=== PATIENT | female | born 1955 | race Caucasian/White ===

== ENCOUNTER 2016-09-03 19:55 | Inpatient (IN) | payer OTHER ==
[~2016-09-03] VITALS: Ht 162.5 cm; Wt 70.6 kg
[~2016-09-03 19:55] MED LIST: ASPIRIN CHILDRE81 MG PO; BACTRIM DS 8001 TA1 PO; CALCIUM CHELAT200 MG PO; CATAFLAM50 MG PO; HYDROCODONE BIT1 T11 PO; IMODIUM2 MG PO; LASIX20 MG PO; OMEPRAZOLE DR20 MG PO; POTASSIUM20 MEQ PO; TRAMADOL HCL50 MG PO; XANAX0.25 MG PO
[2016-09-03 20:07] VITALS: BP 146/74
[2016-09-03] MEDS ORDERED: DOXYCYCLINE100 M3 PO (20:13)
[2016-09-03] MEDS ORDERED: CHEWABLE VITE1 CTB PO (20:14)
[2016-09-03 20:24] LABS: BASO % 0.2 % (0.0-1.0); EOS # 0.1 10*3/uL (0.0-0.4); EOS % 1.3 % (1.0-4.0); HEMATOCRIT 35.7 % (37.0-47.0); HEMOGLOBIN 12.7 g/dl (12.0-16.0); IG # 0.1 10*3/uL (0.0-0.1); LYMPH # 3.1 10*3/uL (1.3-4.4); LYMPH % 34.3 % (27.0-41.0); MEAN CORPUSCULAR HGB 30.2 pg (27.0-31.0); MEAN CORPUSCULAR HGB CONC 35.6 g/dl (33.0-37.0); MONO # 0.7 10*3/uL (0.1-1.0); MONO % 7.8 % (3.0-9.0); NEUT # 5.1 10*3/uL (2.3-7.9); NEUT % 55.6 % (47.0-73.0); PLATELET COUNT AUTOMATED 237 10*3/uL (130-400); RED CELL DISTRI WIDTH 12.9 % (0-14.5); WHITE BLOOD COUNT 9.1 10*3/uL (4.8-10.8)
[2016-09-03 20:26] VITALS: BP 146/74
[2016-09-03 20:45] LABS: ALBUMIN 3.8 gm/dl (3.1-4.5); ALKALINE PHOSPHATASE 94 U/L (45-117); BILIRUBIN, TOTAL 1.1 mg/dl (0.2-1.0); BUN 26 mg/dl (7-24); CARBON DIOXIDE 26 mmol/L (21-32); CHLORIDE 100 mmol/L (98-107); CPK 87 U/L (26-192); EST GLOM FILT AFRICAN AMERICAN > 60 ml/min; GLUCOSE 90 mg/dL (65-99); SGOT/AST 15 IU/L (3-35); SGPT/ALT 23 U/L (12-78); SODIUM 141 mmol/L (136-145)
[2016-09-03 20:46] LABS: CKMB 1.8 ng/ml (0.5-3.6)
[2016-09-03 20:50] LABS: POTASSIUM 2.4 mmol/L (3.5-5.1); TROPONIN I < 0.015 ng/ml (<0.045)
[2016-09-03 21:49] VITALS: BP 128/98
[2016-09-03 22:50] VITALS: BP 152/76
[2016-09-03] MEDS ORDERED: XANAX0.5 MG PO (23:07)
[2016-09-03] MEDS ORDERED: OMEPRAZOLE D/R20 MG PO (23:08)
[2016-09-03] MEDS ORDERED: IMODIUM A-D2 M2 PO (23:08)
[2016-09-03] MEDS ORDERED: TOPCARE OMEPRAZ20 MG PO (23:09)
[2016-09-04] VITALS: BP 114/54
[2016-09-04 00:35] LABS: CKMB 1.4 ng/ml (0.5-3.6); CPK 67 U/L (26-192)
[2016-09-04 00:40] LABS: TROPONIN I < 0.015 ng/ml (<0.045)
[2016-09-04 06:04] LABS: BASO % 0.5 % (0.0-1.0); EOS # 0.1 10*3/uL (0.0-0.4); EOS % 2.2 % (1.0-4.0); HEMATOCRIT 32.3 % (37.0-47.0); HEMOGLOBIN 11.1 g/dl (12.0-16.0); LYMPH % 32.7 % (27.0-41.0); MEAN CORPUSCULAR HGB 30.5 pg (27.0-31.0); MEAN CORPUSCULAR HGB CONC 34.4 g/dl (33.0-37.0); MEAN PLATELET VOLUME 8.8 fl (9.6-12.3); MONO # 0.6 10*3/uL (0.1-1.0); MONO % 9.3 % (3.0-9.0); NEUT # 3.3 10*3/uL (2.3-7.9); NEUT % 54.8 % (47.0-73.0); PLATELET COUNT AUTOMATED 204 10*3/uL (130-400); RED BLOOD COUNT 3.64 10*6/uL (4.10-5.10); RED CELL DISTRI WIDTH 13.2 % (0-14.5)
[2016-09-04 06:09] LABS: MEAN CELL VOLUME 88.7 fl (81.0-99.0)
[2016-09-04 06:13] LABS: CKMB 1.7 ng/ml (0.5-3.6); CPK 67 U/L (26-192); TROPONIN I < 0.015 ng/ml (<0.045)
[2016-09-04 06:29] LABS: HEMOGLOBIN A1c 5.5 % (4.8-5.6)
[2016-09-04 06:37] LABS: BILIRUBIN, TOTAL 0.7 mg/dl (0.2-1.0); BUN 23 mg/dl (7-24); CARBON DIOXIDE 28 mmol/L (21-32); CHLORIDE 109 mmol/L (98-107); CHOLESTEROL 168 mg/dL (<200); EST GLOM FILT AFRICAN AMERICAN > 60 ml/min; GLUCOSE 104 mg/dL (65-99); MAGNESIUM 2.6 mg/dL (1.5-2.1); PHOSPHOROUS 2.4 mg/dL (2.5-4.9); PROTHROMBIN TIME 10.1 SECONDS (9.0-12.4); SGOT/AST 12 IU/L (3-35); SGPT/ALT 18 U/L (12-78); SODIUM 145 mmol/L (136-145); TRIGLYCERIDES 526 mg/dl (<150)
[2016-09-04 06:43] LABS: ALKALINE PHOSPHATASE 80 U/L (45-117); FREE T4 1.12 ng/dl (0.76-1.46); HDL CHOLESTEROL 30 mg/dl (40-60); POTASSIUM 3.5 mmol/L (3.5-5.1); TOTAL PROTEIN 5.6 gm/dL (6.4-8.2)
[2016-09-04 06:58] LABS: VITAMIN D, 25-HYDROXY 12.2 ng/mL (30-100)
[2016-09-04 06:59] LABS: FOLIC ACID 10.49 ng/mL (>5.38)
[2016-09-04 08:00] VITALS: BP 101/44
[2016-09-04 12:00] VITALS: BP 112/53
[2016-09-04 12:10] LABS: CKMB 1.6 ng/ml (0.5-3.6); CPK 62 U/L (26-192)
[2016-09-04 12:13] LABS: TROPONIN I < 0.015 ng/ml (<0.045)
== END 2016-09-04 15:21 | disposition home or self-care (01) | DRG 313 ==
LOC: ED 19:55 → EDHOLD 21:19 → 4E 21:46
PROVIDERS: Internal Medicine; Nurse Practitioner Family
DX: R07.9 Chest pain, unspecified (principal); E83.42 Hypomagnesemia; E87.6 Hypokalemia; F41.9 Anxiety disorder, unspecified; K21.9 Gastro-esophageal reflux disease without esophagitis; R03.0 Elevated blood-pressure reading, without diagnosis of hypertension; E80.6 Other disorders of bilirubin metabolism; E78.5 Hyperlipidemia, unspecified; Z85.41 Personal history of malignant neoplasm of cervix uteri; Z85.72 Personal history of non-Hodgkin lymphomas; Z90.710 Acquired absence of both cervix and uterus; Z88.8 Allergy status to other drugs, medicaments and biological substances; Z82.49 Family history of ischemic heart disease and other diseases of the circulatory system

== ENCOUNTER → 2019-06-17 | Outpatient (CLI) | payer OTHER ==
[~2019-06-17] MED LIST changes: +CHEWABLE VITE1 CTB PO; +DOXYCYCLINE100 M3 PO; +IMODIUM A-D2 M2 PO; +OMEPRAZOLE D/R20 MG PO; +TOPCARE OMEPRAZ20 MG PO; +XANAX0.5 MG PO
== END | disposition home or self-care (01) ==
LOC: MAMMO 00:11
DX: Z12.31 Encounter for screening mammogram for malignant neoplasm of breast (principal)

== ENCOUNTER → 2019-12-25 | Outpatient (CLI) | payer OTHER | END | disposition home or self-care (01) | LOC: COVID19 00:57 | DX: Z20.828 Contact with and (suspected) exposure to other viral communicable diseases (principal); J01.00 Acute maxillary sinusitis, unspecified; R06.02 Shortness of breath; R06.2 Wheezing ==

== ENCOUNTER 2020-04-04 18:48 | Observation (INO) | payer OTHER ==
[~2020-04-04] VITALS: Ht 162.5 cm; Wt 75.7 kg
[~2020-04-04 18:48] MED LIST changes: -LASIX20 MG PO; +LASIX40 MG PO; -POTASSIUM20 MEQ PO; +POTASSIUM99 M3 PO
[2020-04-04 18:57] VITALS: BP 168/87
[2020-04-04 19:16] LABS: BASO % 0.4 % (0.0-1.0); EOS # 0.1 10*3/uL (0.0-0.4); EOS % 1.3 % (1.0-4.0); HEMATOCRIT 40.9 % (37.0-47.0); LYMPH # 2.5 10*3/uL (1.3-4.4); LYMPH % 27.2 % (27.0-41.0); MEAN CORPUSCULAR HGB 28.6 pg (27.0-31.0); MEAN CORPUSCULAR HGB CONC 32.5 g/dl (33.0-37.0); MEAN PLATELET VOLUME 9.1 fl (9.6-12.3); MONO # 0.7 10*3/uL (0.1-1.0); MONO % 7.7 % (3.0-9.0); NEUT # 5.7 10*3/uL (2.3-7.9); NEUT % 63.1 % (47.0-73.0); PLATELET COUNT AUTOMATED 262 10*3/uL (130-400); RED BLOOD COUNT 4.65 10*6/uL (4.10-5.10); RED CELL DISTRI WIDTH 13.1 % (0-14.5)
[2020-04-04 19:25] VITALS: BP 132/74
[2020-04-04 19:27] LABS: ACT PARTIAL THROMBO TIME 24.2 SECONDS (20.0-32.1)
[2020-04-04 19:46] LABS: ALBUMIN 4.5 gm/dl (3.1-4.5); ALKALINE PHOSPHATASE 92 U/L (45-117); BUN 20 mg/dl (7-24); CHLORIDE 104 mmol/L (98-107); CREATININE 1.29 mg/dL (0.55-1.02); POTASSIUM 3.8 mmol/L (3.5-5.1); SGOT/AST 42 IU/L (3-35); SGPT/ALT 43 U/L (12-78); SODIUM 139 mmol/L (136-145)
[2020-04-04 19:49] LABS: TROPONIN I < 0.015 ng/ml (<0.045)
[2020-04-04 20:02] VITALS: BP 110/68
--- NOTE | 2020-04-04 20:03 | NUR ---
PATIENT IN BED AWAKE AND ALERT NO DISTRESS NOTED. PATIENT STATES CHEST PAIN IS GONE AT THIS TIME. VOICES NO COMPLAINTS. RN WILL CONT TO MONITOR
[2020-04-04 20:30] VITALS: BP 134/88
[2020-04-04 21:28] VITALS: BP 133/83
[2020-04-04 22:35] VITALS: BP 148/78
[2020-04-04] MEDS ORDERED: CIPRO500 MG PO (23:12)
[2020-04-04] MEDS ORDERED: PRAVACHOL20 MG PO (23:13)
--- NOTE | 2020-04-05 00:12 | NUR ---
PATIENT IN BED AWAKE AND ALERT WATCHING TV. NO DISTRESS NOTED. CALL LIGHT WITHIN REACH. VOICES NO COMPLAINTS. RN WILL CONT TO MONITOR
[2020-04-05 01:00] VITALS: BP 132/80
--- NOTE | 2020-04-05 02:42 | NUR ---
PATIENT RESTING IN BED AT THIS TIME. NO DISTRESS NOTED. CALL LIGHT WITHIN REACH. RESPIRATIONS EASY, NON-LABORED ON ROOM AIR. RN WILL CONTINUE TO MONITOR.
--- NOTE | 2020-04-05 04:00 | NUR ---
PATIENT RESTING IN BED WITH TV ON. RESPIRATIONS EASY, NON-LABORED ON ROOM AIR. NO DISTRESS NOTED. PATIENT DENIES ANY NEEDS AT THIS TIME. RN WILL CONTINUE TO MONITOR.
[2020-04-05 05:50] LABS: BUN 20 mg/dl (7-24); CHLORIDE 107 mmol/L (98-107); CREATININE 1.03 mg/dL (0.55-1.02); POTASSIUM 4.1 mmol/L (3.5-5.1); SODIUM 142 mmol/L (136-145)
[2020-04-05 06:16] LABS: BASO % 0.4 % (0.0-1.0); EOS # 0.1 10*3/uL (0.0-0.4); EOS % 1.7 % (1.0-4.0); HEMATOCRIT 36.1 % (37.0-47.0); LYMPH # 2.9 10*3/uL (1.3-4.4); LYMPH % 36.9 % (27.0-41.0); MEAN CELL VOLUME 89.6 fl (81.0-99.0); MEAN CORPUSCULAR HGB 28.3 pg (27.0-31.0); MEAN CORPUSCULAR HGB CONC 31.6 g/dl (33.0-37.0); MEAN PLATELET VOLUME 9.7 fl (9.6-12.3); MONO # 0.6 10*3/uL (0.1-1.0); MONO % 7.5 % (3.0-9.0); NEUT # 4.2 10*3/uL (2.3-7.9); NEUT % 53.2 % (47.0-73.0); PLATELET COUNT AUTOMATED 218 10*3/uL (130-400); RED BLOOD COUNT 4.03 10*6/uL (4.10-5.10); RED CELL DISTRI WIDTH 13.3 % (0-14.5); WHITE BLOOD COUNT 7.8 10*3/uL (4.8-10.8)
[2020-04-05 06:30] VITALS: BP 147/74
--- NOTE | 2020-04-05 06:38 | NUR ---
PATIENT RESTING IN BED AT THIS TIME. PATIENT JUST BACK FROM VQ SCAN AT THIS TIME. PROVIDED PATIENT WITH BREAKFAST MENU AND PHONE NUMBER TO CALL. RESPIRATIONS EASY, NON-LABORED ON ROOM AIR. NO DISTRESS NOTED. RN WILL CONTINUE TO MONITOR.
[2020-05-11] MEDS ORDERED: CALCIUM 1,0001 EACH PO (08:39)
[2020-05-11] MEDS ORDERED: PROBIOTIC DIGE1 EACH PO (08:40)
[2020-05-11] MEDS ORDERED: IMODIUM A-D2 M2 PO (08:41)
[2020-05-11] MEDS ORDERED: MECLIZINE HYD12.5 MG PO (08:42)
== END 2020-04-05 13:21 | disposition home or self-care (01) ==
LOC: ED 18:48 → EDHOLD 21:56
PROVIDERS: Emergency Medicine; Internal Medicine; ADMIT Student in an Organized Health Care Education/Training Program; ATTEND Student in an Organized Health Care Education/Training Program
DX: R07.89 Other chest pain (principal); R79.89 Other specified abnormal findings of blood chemistry; R00.0 Tachycardia, unspecified; N17.9 Acute kidney failure, unspecified; R73.9 Hyperglycemia, unspecified; E80.6 Other disorders of bilirubin metabolism; K21.9 Gastro-esophageal reflux disease without esophagitis; E78.5 Hyperlipidemia, unspecified; F41.9 Anxiety disorder, unspecified

== ENCOUNTER → 2020-05-11 | Outpatient (CLI) | payer OTHER ==
[~2020-05-11] MED LIST changes: +CALCIUM 1,0001 EACH PO; +CIPRO500 MG PO; +MECLIZINE HYD12.5 MG PO; +PRAVACHOL20 MG PO; +PROBIOTIC DIGE1 EACH PO
--- NOTE | 2020-05-11 09:30 | NUR ---
INFORMED CONSENT OBTAINED FOR EXERCISE CARDIOLITE STRESS TEST WITH DR. CASEY. RESTING EKG NSR WITH A SUPINE HR OF 78 WITH BP OF 132/84 AND HR OF 78 WITH BP OF 126/80 IN STANDING POSITION. RESTING SPO2 OF 99% ON ROOM AIR. PT COMPLETED 3:15 OF A CORBY PROTOCOL. COMPLETED 15 SECONDS OF STAGE II AT 2.5 MPH AND 12% GRADE. TEST TERMINATED BECAUSE OF FATIGUE AND SOB. REACHED A PEAK HR OF 161 WHICH IS 103% OF PREDICTED MAX AND A PEAK BP OF 186/74. EXERCISE SPO2 OF 96%. HAD NO CHEST PAIN AND EKG NONDIAGNOSTIC. HAS A FAIR EXERCISE TOLERANCE. LAST RECOVERY HR OF 91 WITH BP OF 142/84. AWAITING SCANNING IN STABLE CONDITION.
== END | disposition home or self-care (01) ==
LOC: CARD 00:20
PROVIDERS: ATTEND Internal Medicine
DX: R07.9 Chest pain, unspecified (principal); R06.02 Shortness of breath

== ENCOUNTER → 2020-06-22 | Outpatient (CLI) | payer OTHER | END | disposition home or self-care (01) | LOC: MAMMO 00:18 | PROVIDERS: ATTEND Family Medicine | DX: Z12.31 Encounter for screening mammogram for malignant neoplasm of breast (principal); N64.89 Other specified disorders of breast ==

== ENCOUNTER → 2020-07-14 | Outpatient (CLI) | payer OTHER | END | disposition home or self-care (01) | LOC: MAMMO 09:59 | PROVIDERS: ATTEND Family Medicine | DX: N60.02 Solitary cyst of left breast (principal); R92.1 Mammographic calcification found on diagnostic imaging of breast; R92.8 Other abnormal and inconclusive findings on diagnostic imaging of breast ==

== ENCOUNTER → 2020-10-10 | Outpatient (CLI) | payer OTHER ==
[2020-10-10 10:20] LABS: BASO % 0.3 % (0.0-1.0); EOS # 0.1 10*3/uL (0.0-0.4); EOS % 1.4 % (1.0-4.0); HEMATOCRIT 38.3 % (37.0-47.0); LYMPH # 1.8 10*3/uL (1.3-4.4); LYMPH % 23.5 % (27.0-41.0); MEAN CORPUSCULAR HGB CONC 32.9 g/dl (33.0-37.0); MEAN PLATELET VOLUME 9.5 fl (9.6-12.3); MONO # 0.5 10*3/uL (0.1-1.0); MONO % 6.7 % (3.0-9.0); NEUT # 5.2 10*3/uL (2.3-7.9); NEUT % 67.7 % (47.0-73.0); PLATELET COUNT AUTOMATED 208 10*3/uL (130-400); RED BLOOD COUNT 4.35 10*6/uL (4.10-5.10); RED CELL DISTRI WIDTH 13.2 % (0-14.5); WHITE BLOOD COUNT 7.7 10*3/uL (4.8-10.8)
[2020-10-10 10:20] LABS: BILIRUBIN Negative (Negative); BLOOD 1+ (Negative); CLARITY Cloudy (Clear); COLOR Yellow (Yellow); GLUCOSE Negative (Negative); KETONE Negative (Negative); LEUKO ESTERASE 3+ (Negative); NITRITE Positive (Negative); SPECIFIC GRAVITY 1.015 (1.001-1.030); UROBILINOGEN 0.2 E.U./dl (0.0-1.0)
[2020-10-10 10:27] LABS: BACTERIA 4+; EPITHELIAL CELLS 0-2; MUCOUS TRACE; RBC 0-2 rbc/hpf (0-2); WBC TNTC wbc/hpf (0-5)
[2020-10-10 10:35] LABS: ALBUMIN 3.5 gm/dl (3.1-4.5); ALKALINE PHOSPHATASE 88 U/L (45-117); BUN 11 mg/dl (7-24); CHLORIDE 108 mmol/L (98-107); CHOLESTEROL 177 mg/dL (<200); CREATININE 0.93 mg/dL (0.55-1.02); POTASSIUM 3.9 mmol/L (3.5-5.1); SGOT/AST 36 IU/L (3-35); SGPT/ALT 42 U/L (12-78); SODIUM 141 mmol/L (136-145); TOTAL PROTEIN 6.5 gm/dL (6.4-8.2); TRIGLYCERIDES 299 mg/dl (<150)
[2020-10-10 10:45] LABS: LDL CHOLESTEROL 85 mg/dL (9-159)
[2020-10-10 11:06] LABS: VITAMIN D, 25-HYDROXY 31.3 ng/mL (30-100)
== END | disposition home or self-care (01) ==
LOC: LAB 00:20
PROVIDERS: Nurse Practitioner Family; ATTEND Family Medicine
DX: N30.20 Other chronic cystitis without hematuria (principal); E55.9 Vitamin D deficiency, unspecified; E78.5 Hyperlipidemia, unspecified; Z00.01 Encounter for general adult medical examination with abnormal findings; Z13.29 Encounter for screening for other suspected endocrine disorder

== ENCOUNTER → 2021-07-17 | Outpatient (CLI) | payer OTHER, MEDICAID | END | disposition home or self-care (01) | LOC: MAMMO 10:37 | PROVIDERS: ATTEND Internal Medicine | DX: Z12.31 Encounter for screening mammogram for malignant neoplasm of breast (principal) ==

== ENCOUNTER 2021-09-19 13:58 | Emergency (ER) | payer OTHER, MEDICAID ==
[~2021-09-19] VITALS: Ht 162.5 cm; Wt 77.1 kg
[2021-09-19 14:51] LABS: BASO % 0.3 % (0.0-1.0); EOS # 0.1 10*3/uL (0.0-0.4); EOS % 1.9 % (1.0-4.0); HEMATOCRIT 38.4 % (37.0-47.0); LYMPH # 2.4 10*3/uL (1.3-4.4); LYMPH % 33.2 % (27.0-41.0); MEAN CELL VOLUME 85.5 fl (81.0-99.0); MEAN CORPUSCULAR HGB 28.3 pg (27.0-31.0); MEAN CORPUSCULAR HGB CONC 33.1 g/dl (33.0-37.0); MEAN PLATELET VOLUME 9.3 fl (9.6-12.3); MONO # 0.5 10*3/uL (0.1-1.0); MONO % 6.9 % (3.0-9.0); NEUT # 4.2 10*3/uL (2.3-7.9); NEUT % 57.3 % (47.0-73.0); PLATELET COUNT AUTOMATED 239 10*3/uL (130-400); RED BLOOD COUNT 4.49 10*6/uL (4.10-5.10); RED CELL DISTRI WIDTH 13.2 % (0-14.5); WHITE BLOOD COUNT 7.4 10*3/uL (4.8-10.8)
[2021-09-19 15:09] LABS: ALKALINE PHOSPHATASE 88 U/L (45-117); BUN 11 mg/dl (7-24); CHLORIDE 110 mmol/L (98-107); CREATININE 0.92 mg/dL (0.55-1.02); LIPASE 86 U/L (73-393); SGOT/AST 36 IU/L (3-35); SGPT/ALT 42 U/L (12-78); SODIUM 141 mmol/L (136-145); TOTAL PROTEIN 7.1 gm/dL (6.4-8.2)
[2021-09-19] MEDS ORDERED: METRONIDAZOLE500 M1 PO (18:50)
[2021-09-19] MEDS ORDERED: CIPRO500 MG PO (18:50)
[2021-09-19] MEDS ORDERED: HYDROCODONE-AC1 EAC1 PO (18:52)
== END 2021-09-19 19:48 | disposition home or self-care (01) ==
LOC: ED 13:58
PROVIDERS: Physician Assistant
DX: K57.92 Diverticulitis of intestine, part unspecified, without perforation or abscess without bleeding (principal); Z88.1 Allergy status to other antibiotic agents; Z88.8 Allergy status to other drugs, medicaments and biological substances; Z79.899 Other long term (current) drug therapy; Z98.890 Other specified postprocedural states; Z90.710 Acquired absence of both cervix and uterus

== ENCOUNTER → 2022-04-16 | Outpatient (CLI) | payer OTHER, MEDICAID ==
[~2022-04-16] MED LIST changes: +HYDROCODONE-AC1 EAC1 PO; +METRONIDAZOLE500 M1 PO
[2022-04-16 13:04] LABS: BASO % 0.4 % (0.0-1.0); EOS # 0.2 10*3/uL (0.0-0.4); HEMATOCRIT 39.7 % (37.0-47.0); LYMPH # 1.9 10*3/uL (1.3-4.4); LYMPH % 36.5 % (27.0-41.0); MEAN CELL VOLUME 88.4 fl (81.0-99.0); MEAN CORPUSCULAR HGB 28.7 pg (27.0-31.0); MEAN CORPUSCULAR HGB CONC 32.5 g/dl (33.0-37.0); MEAN PLATELET VOLUME 9.5 fl (9.6-12.3); MONO # 0.5 10*3/uL (0.1-1.0); MONO % 8.5 % (3.0-9.0); NEUT # 2.7 10*3/uL (2.3-7.9); NEUT % 51.6 % (47.0-73.0); PLATELET COUNT AUTOMATED 216 10*3/uL (130-400); RED BLOOD COUNT 4.49 10*6/uL (4.10-5.10); WHITE BLOOD COUNT 5.3 10*3/uL (4.8-10.8)
[2022-04-16 13:29] LABS: BUN 15 mg/dl (7-24); CHLORIDE 104 mmol/L (98-107); CREATININE 0.96 mg/dL (0.55-1.02); LDH 151 U/L (84-246); SGOT/AST 28 IU/L (3-35); SGPT/ALT 35 U/L (12-78); SODIUM 137 mmol/L (136-145); TOTAL PROTEIN 7.3 gm/dL (6.4-8.2)
[2022-04-16 13:30] LABS: ALKALINE PHOSPHATASE 90 U/L (45-117)
== END ==
LOC: LAB 12:02
PROVIDERS: ATTEND Internal Medicine
DX: Z12.31 Encounter for screening mammogram for malignant neoplasm of breast (principal); C85.95 Non-Hodgkin lymphoma, unspecified, lymph nodes of inguinal region and lower limb; R22.40 Localized swelling, mass and lump, unspecified lower limb; D70.9 Neutropenia, unspecified; R10.9 Unspecified abdominal pain

== ENCOUNTER → 2022-05-23 | Outpatient (CLI) | payer OTHER, MEDICAID ==
[2022-05-23 15:18] LABS: BILIRUBIN Negative (Negative); BLOOD 2+ (Negative); CLARITY Cloudy (Clear); COLOR Yellow (Yellow); GLUCOSE Negative (Negative); KETONE Negative (Negative); LEUKO ESTERASE 2+ (Negative); NITRITE Positive (Negative); PH 6.5 (4.5-8.0); SPECIFIC GRAVITY 1.015 (1.001-1.030)
[2022-05-23 15:56] LABS: BACTERIA 2+; WBC 21-30 wbc/hpf (0-5)
== END | disposition home or self-care (01) ==
LOC: LAB 14:16
PROVIDERS: ATTEND Family Medicine
DX: N30.00 Acute cystitis without hematuria (principal)

== ENCOUNTER → 2022-07-19 | Outpatient (CLI) | payer OTHER, MEDICAID | END | disposition home or self-care (01) | LOC: MAMMO 00:58 | PROVIDERS: ATTEND Internal Medicine | DX: Z12.31 Encounter for screening mammogram for malignant neoplasm of breast (principal); N63.0 Unspecified lump in unspecified breast ==

== ENCOUNTER 2023-04-05 17:48 | Emergency (ER) | payer OTHER, MEDICAID ==
[~2023-04-05] VITALS: Ht 162.5 cm; Wt 74.8 kg
[2023-04-05] MEDS ORDERED: LEVOFLOXACIN750 M2 PO (18:51)
== END 2023-04-05 19:13 | disposition home or self-care (01) ==
LOC: ED 17:48
DX: J32.9 Chronic sinusitis, unspecified (principal); R51.9 Headache, unspecified; F41.9 Anxiety disorder, unspecified; R73.9 Hyperglycemia, unspecified; E80.6 Other disorders of bilirubin metabolism; E83.41 Hypermagnesemia; D64.9 Anemia, unspecified; K21.9 Gastro-esophageal reflux disease without esophagitis; E78.5 Hyperlipidemia, unspecified; Z88.5 Allergy status to narcotic agent; Z88.8 Allergy status to other drugs, medicaments and biological substances; Z90.710 Acquired absence of both cervix and uterus; Z98.890 Other specified postprocedural states

== ENCOUNTER → 2023-07-22 | Outpatient (CLI) | payer OTHER, MEDICAID ==
[~2023-07-22] MED LIST changes: +LEVOFLOXACIN750 M2 PO
[2023-07-22 12:01] LABS: BASO % 0.4 % (0.0-1.0); EOS # 0.1 10*3/uL (0.0-0.4); EOS % 1.8 % (1.0-4.0); HEMATOCRIT 41.6 % (37.0-47.0); LYMPH # 2.3 10*3/uL (1.3-4.4); LYMPH % 30.1 % (27.0-41.0); MEAN CELL VOLUME 87.2 fl (81.0-99.0); MEAN CORPUSCULAR HGB 27.3 pg (27.0-31.0); MEAN CORPUSCULAR HGB CONC 31.3 g/dl (33.0-37.0); MONO # 0.6 10*3/uL (0.1-1.0); MONO % 7.6 % (3.0-9.0); NEUT # 4.6 10*3/uL (2.3-7.9); NEUT % 59.8 % (47.0-73.0); PLATELET COUNT AUTOMATED 316 10*3/uL (130-400); RED BLOOD COUNT 4.77 10*6/uL (4.10-5.10); RED CELL DISTRI WIDTH 14.7 % (0-14.5); WHITE BLOOD COUNT 7.6 10*3/uL (4.8-10.8)
[2023-07-22 12:25] LABS: ALKALINE PHOSPHATASE 87 U/L (46-116); BUN 10 mg/dl (9-23); CHLORIDE 105 mmol/L (98-107); LDH 167 U/L (120-246); POTASSIUM 3.4 mmol/L (3.4-5.1); SGPT/ALT 20 U/L (5-49); TOTAL PROTEIN 7.5 gm/dL (6.0-8.0)
== END | disposition home or self-care (01) ==
LOC: LAB 01:27 → MAMMO 11:00
PROVIDERS: ATTEND Internal Medicine Medical Oncology
DX: Z12.31 Encounter for screening mammogram for malignant neoplasm of breast (principal); D70.9 Neutropenia, unspecified; C85.95 Non-Hodgkin lymphoma, unspecified, lymph nodes of inguinal region and lower limb; E78.5 Hyperlipidemia, unspecified; R22.40 Localized swelling, mass and lump, unspecified lower limb; C85.90 Non-Hodgkin lymphoma, unspecified, unspecified site; N28.89 Other specified disorders of kidney and ureter; R10.9 Unspecified abdominal pain; N64.89 Other specified disorders of breast

== ENCOUNTER → 2023-08-06 | Outpatient (CLI) | payer OTHER, MEDICAID | END | disposition home or self-care (01) | LOC: CT 07-31 11:00 | PROVIDERS: ATTEND Family Medicine | DX: J34.1 Cyst and mucocele of nose and nasal sinus (principal); J32.9 Chronic sinusitis, unspecified ==

== ENCOUNTER → 2023-08-28 | Outpatient (CLI) | payer OTHER, MEDICAID ==
[2023-08-28 14:23] LABS: BUN 11 mg/dl (9-23); CHLORIDE 107 mmol/L (98-107); POTASSIUM 4.1 mmol/L (3.4-5.1)
== END | disposition home or self-care (01) ==
LOC: LAB 01:48
PROVIDERS: ATTEND Internal Medicine Medical Oncology
DX: C85.95 Non-Hodgkin lymphoma, unspecified, lymph nodes of inguinal region and lower limb (principal); Z12.31 Encounter for screening mammogram for malignant neoplasm of breast; Z45.2 Encounter for adjustment and management of vascular access device; D70.9 Neutropenia, unspecified; R22.40 Localized swelling, mass and lump, unspecified lower limb; N28.89 Other specified disorders of kidney and ureter; R10.9 Unspecified abdominal pain

== ENCOUNTER → 2024-04-29 | Outpatient (CLI) | payer OTHER, MEDICAID ==
[2024-04-29 12:18] LABS: BASO % 0.7 % (0.0-1.0); EOS # 0.2 10*3/uL (0.0-0.4); EOS % 2.9 % (1.0-4.0); MEAN CELL VOLUME 84.7 fl (81.0-99.0); MEAN CORPUSCULAR HGB 27.5 pg (27.0-31.0); MEAN CORPUSCULAR HGB CONC 32.4 g/dl (33.0-37.0); MONO # 0.5 10*3/uL (0.1-1.0); NEUT # 3.1 10*3/uL (2.3-7.9); NEUT % 50.1 % (47.0-73.0); PLATELET COUNT AUTOMATED 198 10*3/uL (130-400); RED BLOOD COUNT 4.37 10*6/uL (4.10-5.10); RED CELL DISTRI WIDTH 13.8 % (0-14.5); WHITE BLOOD COUNT 6.1 10*3/uL (4.8-10.8)
[2024-04-29 12:56] LABS: ALKALINE PHOSPHATASE 105 U/L (46-116); BUN 8 mg/dl (9-23); CHLORIDE 106 mmol/L (98-107); CHOLESTEROL 149 mg/dL (<200); FREE T4 1.13 ng/dl (0.89-1.76); LDL CHOLESTEROL 70 mg/dL (9-159); POTASSIUM 3.4 mmol/L (3.4-5.1); SGPT/ALT 27 U/L (5-49); TOTAL PROTEIN 6.7 gm/dL (6.0-8.0); TRIGLYCERIDES 201 mg/dl (<150); VITAMIN D, 25-HYDROXY 41.6 ng/mL (30-100)
== END | disposition home or self-care (01) ==
LOC: LAB 04:07
PROVIDERS: Internal Medicine; ATTEND Psychiatry & Neurology Vascular Neurology
DX: I10 Essential (primary) hypertension (principal); E78.2 Mixed hyperlipidemia; R12 Heartburn; R53.83 Other fatigue; E53.9 Vitamin B deficiency, unspecified; E55.9 Vitamin D deficiency, unspecified

== ENCOUNTER → 2024-07-23 | Outpatient (CLI) | payer OTHER, MEDICAID | END | disposition home or self-care (01) | LOC: MAMMO 13:52 | PROVIDERS: ATTEND Internal Medicine Medical Oncology | DX: Z12.31 Encounter for screening mammogram for malignant neoplasm of breast (principal); N64.89 Other specified disorders of breast ==

== ENCOUNTER → 2024-12-03 | Outpatient (CLI) | payer OTHER, MEDICAID ==
[2024-12-03 10:44] LABS: BILIRUBIN 2+ (Negative); BLOOD 3+ (Negative); CLARITY Cloudy (Clear); GLUCOSE Negative (Negative); NITRITE Positive (Negative); SPECIFIC GRAVITY 1.015 (1.001-1.030)
[2024-12-03 11:06] LABS: COLOR Orange (Yellow); KETONE 3+ (Negative); LEUKO ESTERASE 3+ (Negative)
[2024-12-03 11:37] LABS: RBC TNTC rbc/hpf (0-2)
[2024-12-03 11:38] LABS: BACTERIA 1+; WBC 16-20 wbc/hpf (0-5)
== END | disposition home or self-care (01) ==
LOC: LAB 10:11
PROVIDERS: ATTEND Nurse Practitioner Family
DX: N20.0 Calculus of kidney (principal); N28.89 Other specified disorders of kidney and ureter; R10.2 Pelvic and perineal pain

== ENCOUNTER 2024-12-16 10:12 | Emergency (ER) | payer OTHER, MEDICAID ==
[~2024-12-16] VITALS: Wt 81.6 kg
[2024-12-16] MEDS ORDERED: Ondansetron Hydrochloride 4 MG/2 ML VIAL IV ONE (10:40)
[2024-12-16] MEDS ORDERED: SODIUM CHLORIDE 0.9% 1,000 ML IV ONE (10:40)
[2024-12-16 10:50] LABS: BASO # 0.1 10*3/uL (0.0-0.1); BASO % 0.5 % (0.0-1.0); EOS # 0.3 10*3/uL (0.0-0.4); EOS % 3.0 % (1.0-4.0); MEAN CELL VOLUME 88.2 fl (81.0-99.0); MEAN CORPUSCULAR HGB 27.5 pg (27.0-31.0); MEAN PLATELET VOLUME 8.7 fl (9.6-12.3); MONO # 0.5 10*3/uL (0.1-1.0); MONO % 5.5 % (3.0-9.0); NEUT # 6.5 10*3/uL (2.3-7.9); NEUT % 68.9 % (47.0-73.0); NUCLEATED RED BLOOD CELL 0.0 % (0.0-0.0); NUCLEATED RED BLOOD CELL 0.0 10*3/uL (0.0-0.0); PLATELET COUNT AUTOMATED 225 10*3/uL (130-400); RED CELL DISTRI WIDTH 16.6 % (0-14.5)
[2024-12-16 11:14] LABS: BUN 14.0 mg/dl (9-23); SGPT/ALT 28.0 U/L (5-49)
[2024-12-16] MEDS ORDERED: AMLODIPINE BESY10 MG PO (11:17)
[2024-12-16] MEDS ORDERED: VITAMIN D325 MCG PO (11:18)
[2024-12-16 11:19] LABS: BILIRUBIN 1+ (Negative); BLOOD 2+ (Negative); CLARITY Turbid (Clear); KETONE Negative (Negative); LEUKO ESTERASE 3+ (Negative); NITRITE Positive (Negative); PH 6.0 (4.5-8.0); SPECIFIC GRAVITY 1.015 (1.001-1.030); UROBILINOGEN 1.0 E.U./dl (0.0-1.0)
[2024-12-16] MEDS ORDERED: ARNUITY ELLIPT50 MCG INH (11:19)
[2024-12-16] MEDS ORDERED: NITROFURANTOIN100 M3 PO (11:19)
[2024-12-16] MEDS ORDERED: VENT7GM INH (11:21)
[2024-12-16] MEDS ORDERED: VITAMIN B121000 MC1 PO (11:22)
[2024-12-16] MEDS ORDERED: CETIRIZINE10 MG PO (11:22)
[2024-12-16] MEDS ORDERED: Ondansetron4 MG PO (11:23)
[2024-12-16 11:29] LABS: COLOR Dark Yellow (Yellow); WBC TNTC wbc/hpf (0-5)
[2024-12-16] MEDS ORDERED: CIPRO500 MG PO (11:49)
== END 2024-12-16 12:02 | disposition home or self-care (01) ==
LOC: ED 10:12
PROVIDERS: Emergency Medicine
DX: N39.0 Urinary tract infection, site not specified (principal); R55 Syncope and collapse; R42 Dizziness and giddiness; N28.9 Disorder of kidney and ureter, unspecified; D64.9 Anemia, unspecified; Z79.899 Other long term (current) drug therapy; Z88.5 Allergy status to narcotic agent; Z88.8 Allergy status to other drugs, medicaments and biological substances; Z90.710 Acquired absence of both cervix and uterus; Z98.890 Other specified postprocedural states

== ENCOUNTER → 2025-05-21 | Outpatient (CLI) | payer OTHER, MEDICAID ==
[~2025-05-21] MED LIST changes: +AMLODIPINE BESY10 MG PO; +ARNUITY ELLIPT50 MCG INH; +CETIRIZINE10 MG PO; +NITROFURANTOIN100 M3 PO; +Ondansetron4 MG PO; +VENT7GM INH; +VITAMIN B121000 MC1 PO; +VITAMIN D325 MCG PO
[2025-05-21 10:21] LABS: BILIRUBIN Negative (Negative); BLOOD Negative (Negative); CLARITY Clear (Clear); COLOR Yellow (Yellow); KETONE Negative (Negative); LEUKO ESTERASE Trace (Negative); NITRITE Negative (Negative); PH 6.0 (4.5-8.0); SPECIFIC GRAVITY 1.010 (1.001-1.030); UROBILINOGEN 0.2 E.U./dl (0.0-1.0)
[2025-05-21 11:29] LABS: BACTERIA 1+
== END | disposition home or self-care (01) ==
LOC: LAB 01:48
PROVIDERS: ATTEND Nurse Practitioner Family
DX: R39.15 Urgency of urination (principal); N17.9 Acute kidney failure, unspecified